=== PATIENT | male | born 2000 | race Caucasian/White ===

== ENCOUNTER 2022-12-02 10:20 | Outpatient (REF) | payer BC, SELFPAY ==
[2022-12-02 11:54] LABS: Hematocrit 44.5 % (42.0-52.0); Hemoglobin 14.1 g/dl (14.0-18.0); Mean Corpuscular HGB Conc 31.7 g/dl (31.0-36.0); Mean Corpuscular Hemoglobin 27.3 pg (27.0-33.0); Mean Corpuscular Volume 86.2 fL (80.0-98.0); Mean Platelet Volume 9.5 fL (9.4-12.4); Platelet Count 316 X10*3/uL (160-400); Red Blood Count 5.16 X10*6/uL (4.60-5.80); Red Cell Distribution Width 19.5 % (11.0-16.0); White Blood Count 7.2 X10*3/uL (4.8-10.8)
[2022-12-02 13:31] LABS: Alanine Aminotransferase 44 U/L (0-40); Albumin Level 4.3 g/dL (3.5-5.0); Alkaline Phosphatase 97 U/L (39-117); Anion Gap 13 (12-20); Aspartate Amino Transferase 20 U/L (5-37); Bilirubin Total 0.6 mg/dL (0.0-1.0); Blood Urea Nitrogen 10 mg/dL (9-16); C Reactive Protein 0.82 mg/dL (< or = 0.50); Calcium 9.5 mg/dL (8.4-10.2); Carbon Dioxide 23 mmol/L (22-29); Chloride 107 mmol/L (96-108); Estimated Glomerular Filt Rate > 60; Glucose Random 68 mg/dL (60-115); Iron 162 mcg/dL (45-160); Percent Iron Saturation 46 % (15-50); Potassium 3.8 mmol/L (3.3-5.1); Sodium 139 mmol/L (135-145); Total Iron Binding Capacity 349 mcg/dL (228-428); Total Protein 7.9 g/dL (6.5-8.0); Unsaturated Iron Binding 187 ug/dL
[2022-12-02 13:36] LABS: Ferritin 17 ng/mL (20-250); TSH reflex Free T4 1.43 uIU/mL (0.32-4.0); Vitamin D 25-OH Total 30.7 ng/mL (>30)
[2022-12-03 04:16] LABS: HBc Num1 0.12 S/CO (0.00-0.79); HBsAGNum1 0.39 S/CO (0.00-0.99); Hepatitis A Antibody IgG REACTIVE (Nonreactive); Hepatitis B Core Antibody Nonreactive (Nonreactive); Hepatitis B Surface Antigen Negative (Negative); ~HepC Num1 0.08 S/CO (0.00-0.79); ~Hepatitis A Antibody IgG 4.14 S/CO (0.00-0.99); ~Hepatitis B Surface Antibody REACTIVE (Nonreactive); ~Hepatitis C Antibody Nonreactive (Nonreactive)
[2022-12-03 05:43] LABS: HIV AB/AG Nonreactive (Nonreactive); HIV Num 2 0.95 S/CO; HIV Num 3 0.94 S/CO
[2022-12-04 21:48] LABS: TS Negative Control Passed; TS Panel A 0; TS Panel B 0; TS Positive Control Passed; TSpotTB Negative (Negative)
[2022-12-09 20:39] LABS: TPMT Activity 15
[2022-12-11 03:33] LABS: Adalimumab Drug Level 3.8 mcg/mL; Anti-Adalimumab Antibody 19 AU (<10)
== END 2022-12-02 10:21 | disposition home or self-care (01) ==
LOC: HO.LAB 10:20
PROVIDERS: Visit Provider Internal Medicine
DX: K51.90 Ulcerative colitis, unspecified, without complications (principal); K83.01 Primary sclerosing cholangitis
CPT/HCPCS: 36415; 80053; 80145; 82306; 82728; 83520; 83540; 84433; 84443; 85027; 86140; 86481; 86704; 86706; 86708; 86787; 86803; 87340; 87389

== ENCOUNTER 2022-12-02 10:20 | Outpatient (AMB) | payer BC, SELFPAY ==
--- NOTE | 2022-12-02 10:23 | A.OFFVIS_ITS ---
Intake Vital Signs 12/02/22 10:24 Height 5 ft 10 in Weight 178 lb 9.191 oz BMI 25.6 BP 123/65 Blood Pressure Location Lt brachial Position Sitting Pulse 62 Intake Visit Reasons: Crohn's Intake Note: Joel presents in the office as a new patient for Crohn's. CC: He states that he has Ulcerative Colitis. He gets pains in the stomach, constipation and diarrhea. No blood when he has a bowel movement. Allergies No Known Allergies Allergy (Verified 12/02/22 10:26) HPI HPI Comments History of Present Illness Details 22 y.o with recently diagnosed ulcerativ e colitis with PSC this year who is here to establish care. Pt lives in [facility] but goes to [facility] so looking for care closer to this. Records from PCP or GI not available at the time of this visit. Had watery diarrhea 4-5/day with occasional black stools x 1 year with lower abd ominal pain and cramping. Also had bilateral knee and elbow pains. No changes in appetite or weight. Initially attributed his sx to a resolving GI illness and then later on diet triggers. Had urgency and tenesmus. No night time sx. Eventually underwent evaluation through [facility] GI (Dr Aaron Mckeon) including EGD/colo which established the diagnosis in July of this year. Thinks UC was involving the whole colon but unsure. Records not available. Was initiated on Humira 09/30/22, now on 40mg S/C q2w. Last dose was 11/25. However despite being on this for almost a month did not feel much different clinically so was started on budesonide 9mg PO. [place] the dose was too high didn't think it was helping much so decreased it to 3mg BID (6mg/day). Has been on this for almost 2 weeks now. Pt also reports being diagnosed with PSC on the basis on lab work, US followed by an MRI. No biopsy yet. Currently, continues to have abd cramping and diarrhea with urgency. Starting to notice that are turning black again. Also reports worsening pain in R knee with this. [facility] Medical History Hx of branchial cleft cyst Surgical History History of esophagogastroduodenoscopy (EGD) Hx of colonoscopy Hx of appendectomy Social History (Updated 12/02/22 @ 10:26 by HENNY Chung) Household Members: Family Alcohol intake: current Alcohol intake frequency: a few times a week Patient Tobacco Use Status: Never used Tobacco Substance Use Type: Marijuana Review of Systems Const All systems reviewed & are unremarkable except as noted in HPI and below Physical Exam Vital Signs: Last Vital Signs Pulse 62 12/02/22 10:24 BP 123/65 12/02/22 10:24 BMI result Body Mass Index 25.6 Gen appear: NAD HEENT: nonicteric, no cervical lymphadenopathy Chest: CTA CVS: Regular S1/S2 Abd: soft, nontender, nondistended, bowel sounds + Ext: no peripheral edema Neuro: A/Ox3, noted to move all extremities spontaneously Psych: interacting appropriately Assessment & Plan Assessment & Plan (1) Ulcerative colitis: Code(s): K51.90 - Ulcerative colitis, unspecified, without complications (2) Primary sclerosing cholangitis: Code(s): K83.01 - Primary sclerosing cholangitis Plan Ulcerative colitis with PSC Will need records from GI and PCP for accurate assessment of disease extent and severity. These have been requested. We will also get labs to determine response to therapy. Based on clinical assessment, may need escalation in therapy. Briefly reviewed options outside of anti-TNF including small molecule, anti-integrin and anti-IL therapies. However this will be reviewed in detail based on results of work up as below. - Disease and therapy: Active based on clinical presentation. - Check CRP, Fecal calpro. - Check adalimumab levels and Ab - Check CBC, LFTs, renal function. - Cont budesonide for now, however if inflammatory markers significantly up, will switch to systemic pred. Further steroid sparing therapy will be based on ADA drug and Ab level to determine i) dose increase vs ii) in class switch vs iii) out of class switch - Nutrition: Check iron, B12 and folate - Immunization: Reminded to stay up to date on all vaccines and to AVOID LIVE VACCINES. - Bone Health: On Vit D supplements currently. - Cancer prevention: IBD dysplasia: colonoscopy due in 2023 given concurrent PSC. Sun safety discussed. - Associated disease: PSC as per his report. Records awaited. - LFTs ordered. - Will need yearly i) colonoscopy ii) MRI/MRCP and CA 19-9 for screening of CRC, CCa and GBCa. Depending on overall clinical course, this can be spaced out over the next 3-5 years. - Next imaging will be due 08/2023. - If significant cholestasis will also check dexa. Close follow up in 4 weeks. ? Orders: Orders Complete Blood Count no Diff Today - Ulcerative colitis, unspecified, without complications Comprehensive Met. Panel Today - Ulcerative colitis, unspecified, without complications Ferritin Today - Ulcerative colitis, unspecified, without complications IRON PROFILE Today - Ulcerative colitis, unspecified, without complications Thiopurine Methyltransferase Today - Ulcerative colitis, unspecified, without complications Hepatitis A IgG Today - Ulcerative colitis, unspecified, without complications Calprotectin, Fecal Today - Ulcerative colitis, unspecified, without complications CDiff Gene PCR Today - Ulcerative colitis, unspecified, without complications Vitamin D 25-OH Total Today - Ulcerative colitis, unspecified, without complications TSH reflex Free T4 Today - Ulcerative colitis, unspecified, without complications Hepatitis B Core Antibody Today - Ulcerative colitis, unspecified, without complications Hepatitis B Surface Antibody Today - Ulcerative colitis, unspecified, without complications Hepatitis B Surface Antigen Today - Ulcerative colitis, unspecified, without complications Hepatitis C Antibody Today - Ulcerative colitis, unspecified, without complications T Spot TB Today - Ulcerative colitis, unspecified, without complications HIV Ab/Ag Today - Ulcerative colitis, unspecified, without complications C Reactive Protein Today - Ulcerative colitis, unspecified, without co mplications Adalimumab+Ab Today - Ulcerative colitis, unspecified, without complications Varicella IgG Antibody Today - Ulcerative colitis, unspecified, without complications Coding Level of Care Code New Pt Level 5 (63205) Diagnoses Ulcerative colitis Primary sclerosing cholangitis K83.01
[2022-12-02 10:24] VITALS: BP 123/65; PULSE 62; BMI 25.6
== END 2022-12-02 11:06 | disposition home or self-care (01) ==
PROVIDERS: Visit Provider Internal Medicine
DX: K51.90 Ulcerative colitis, unspecified, without complications (principal); K83.01 Primary sclerosing cholangitis
CPT/HCPCS: 99204

== ENCOUNTER 2022-12-09 12:10 | Outpatient (REF) | payer BC, SELFPAY ==
[2022-12-09 13:12] LABS: CDiff Gene PCR NEGATIVE (Negative)
[2022-12-16 23:32] LABS: Calprotectin, Fecal 2880 mcg/g
== END 2022-12-09 12:11 | disposition home or self-care (01) ==
LOC: HO.LNP 12:10
PROVIDERS: Visit Provider Internal Medicine
DX: K51.90 Ulcerative colitis, unspecified, without complications (principal)
CPT/HCPCS: 83993; 87493

== ENCOUNTER 2022-12-25 12:38 | Outpatient (AMB) | payer BC, SELFPAY ==
--- NOTE | 2022-12-25 12:54 | MHC.OFFVIS ---
Intake Intake Visit Reasons: Follow Up Crohns Intake Note: Joel presents as a telehealth today for a follow up to his Crohns per Dr. Fink Allergies No Known Allergies Allergy (Verified 12/02/22 10:26) HPI HPI Comments History of Present Illness Details 22 y.o with recently diagnosed ulcerative colitis with PSC this year who is here for follow up 12/02/22: Pt lives in [facility] but goes to [facility] so looking for care closer to this. Records from PCP or GI not available at the time of this visit. Had watery diarrhea 4-5/day with occasional black stools x 1 year with lower abdominal pain and cramping. Also had bilateral knee and elbow pains. No changes in appetite or weight. Initially attributed his sx to a resolving GI illness and then later on diet triggers. Had urgency and tenesmus. No night time sx. Eventually underwent evaluation through [facility] GI (Dr Aaron Mckeon) including EGD/colo which established the diagnosis in July of this year. Thinks UC was involving the whole colon but unsure. Records not available. Was initiated on Humira 09/30/22, now on 40mg S/C q2w. Last dose was 11/25. However despite being on this for almost a month did not feel much different clinically so was started on budesonide 9mg PO. [place] the dose was too high didn't think it was helping much so decreased it to 3mg BID (6mg/day). Has been on this for almost 2 weeks now. Pt also reports being diagnosed with PSC on the basis on lab work, US followed by an MRI. No biopsy yet. Currently, continues to have abd cramping and diarrhea with urgency. Starting to notice that are turning black again. Also reports worsening pain in R knee with this. 12/25/22: Booked for a televisit today to review results. His sx are essentially unchanged from last visit. Cont on budesonide 3 BID. Records still pending from previous GI. Labs reviewed - has active disease based on fecal calpro >2000. Appears to be secondary to subtherapeutic humira levels due to Ab. PFSH Medical History Hx of branchial cleft cyst Surgical History History of esophagogastroduodenoscopy (EGD) Hx of colonoscopy Hx of appendectomy Social History (Updated 12/02/22 @ 10:26 by HENNY Chung) Household Members: Family Alcohol intake: current Alcohol intake frequency: a few times a week Patient Tobacco Use Status: Never used Tobacco Substance Use Type: Marijuana Review of Systems Const All systems reviewed & are unremarkable except as noted in HPI and below Physical Exam Vital Signs: televisit: Nontoxic appearing Able to speak in complete sentences no facial asymmetry Assessment & Plan Assessment & Plan (1) Ulcerative colitis: Code(s): K51.90 - Ulcerative colitis, unspecified, without complications (2) Primary sclerosing cholangitis: Code(s): K83.01 - Primary sclerosing cholangitis Plan Ulcerative colitis with PSC Records from GI and PCP for accurate assessment of disease extent and severity still pending. Request resent today. Based on clinical and biochemical assessment has active disease and needs to be switched in class due to Ab to Humira. Will favor infliximab infusions with proactive TDM. Therapy already approved by insurance. Biologic discussion: I have discussed the risks and benefits of starting anti-TNF therapy specifically infliximab with the patient, including the risk of NOT using this therapy (uncontrolled disease) and possible alternative therapies that may not be as effective. Risks reviewed included slight increased risk of malignancy and infection and possibility of infusion reactions/allergies or autoimmune-like conditions triggered by infusions. Reviewed the need for up to date vaccinations (and avoidance of live vaccines), and need for annual skin exams. In the meantime, will start systemic prednisone for induction. - Disease and therapy: Active - CRP: 0.8, fecal calpro 2880 - DC budesonide - Start prednisone 60mg PO x 2 week followed by a 10mg taper per week - Start infliximab 5mg/kg IV 0,2,6 followed by q8w - Check CRP, fecal calpro, infliximab drug and Ab levels BEFORE 1st maintenance dose - Records pending as above - Nutrition: Mildly low iron, B12 and folate normal - Immunization: Reminded to stay up to date on all vaccines and to AVOID LIVE VACCINES. - Bone Health: On Vit D supplements currently. Reminded to anderson take this while she is on pred - Cancer prevention: IBD dysplasia: colonoscopy due in 2023 given concurrent PSC. Sun safety discussed. - Associated disease: PSC as per his report. Records awaited. - ALP normal 12/02/22 - Will need yearly i) colonoscopy ii) MRI/MRCP and CA 19-9 for screening of CRC, CCa and GBCa. Depending on overall clinical course, this can be spaced out over the next 3-5 years. - Next imaging will be due 08/2023. - Check DEXA later this year. Follow up in 3 months ? Medications: New prednisone STOP budesonide and start prednisone 60mg once daily to be taken for 2 weeks followed by taper. 60 mg (3 x 20 mg) PO DAILY 2 weeks 42 tabs 0RF prednisone TAPER INSTRUCTIONS: 50mg x 1 week then 40mg x 1 week then 30mg x 1 week then 20mg x 1 week and then 10mg x 1 week orally as directed 105 tabs 0RF Telehealth Telehealth Location of provider rendering services: practice address Location of patient: address on file Patient Identification confirmed using: Name, : Yes Telehealth method: video Patient verbally consented to treatment: Yes Patient verbally consented to billing insurance company: Yes Patient informed of any privacy concerns related to visit: Yes Minutes spent on Phone/Video with Pt.: 17 Coding Level of Care Code Est Pt Level 5 (05260) Diagnoses Ulcerative colitis K51.90 Primary sclerosing cholangitis K83.01
== END 2022-12-25 13:35 | disposition home or self-care (01) ==
LOC: HO.HGI 12:39
PROVIDERS: Visit Provider Internal Medicine
DX: K51.90 Ulcerative colitis, unspecified, without complications (principal); K83.01 Primary sclerosing cholangitis
CPT/HCPCS: 99213

== ENCOUNTER → 2022-12-25 12:38 | Outpatient (BNVA) | payer BC, SELFPAY | PROVIDERS: Visit Provider Internal Medicine ==

== ENCOUNTER 2023-01-20 12:34 | Outpatient (REF) | payer BC, SELFPAY | END 2023-01-20 12:35 | disposition home or self-care (01) | LOC: HO.MDS 12:34 | PROVIDERS: Visit Provider Internal Medicine | DX: K51.90 Ulcerative colitis, unspecified, without complications (principal) | CPT/HCPCS: 96365; 96366; J1745 ==

== ENCOUNTER 2023-02-03 09:58 | Outpatient (REF) | payer BC, SELFPAY | END 2023-02-03 09:59 | disposition home or self-care (01) | LOC: HO.MDS 09:58 | PROVIDERS: Visit Provider Internal Medicine | DX: K51.90 Ulcerative colitis, unspecified, without complications (principal) | CPT/HCPCS: 96365; 96366; J1200; J1745 ==

== ENCOUNTER 2023-03-02 10:22 | Outpatient (REF) | payer BC, SELFPAY | END 2023-03-02 10:23 | disposition home or self-care (01) | LOC: HO.MDS 10:22 | PROVIDERS: Visit Provider Internal Medicine | DX: K51.90 Ulcerative colitis, unspecified, without complications (principal) | CPT/HCPCS: 96365; 96375; J1200; J1720; J1745 ==

== ENCOUNTER 2023-03-23 10:57 | Outpatient (AMB) | payer BC, SELFPAY ==
--- NOTE | 2023-03-23 11:00 | MHC.OFFVIS ---
Intake Vital Signs 03/23/23 11:02 Height 5 ft 10 in Weight 180 lb 12.465 oz BMI 25.9 BP 121/71 Blood Pressure Location Lt brachial Position Sitting Pulse 64 Intake Visit Reasons: f/u Intake Note: Joel presents in the office as a follow up. CC: Meds seem to be wearing off and he states that the symptoms are starting to come back. Allergies No Known Allergies Allergy (Verified 03/23/23 11:02) HPI HPI Comments History of Present Illness Details 22 y.o with recently diagnosed ulcerative colitis with PSC this year who is here for follow up 12/02/22: Pt lives in [facility] but goes to [facility] so looking for care closer to this. Records from PCP or GI not available at the time of this visit. Had watery diarrhea 4-5/day with occasional black stools x 1 year with lower abdominal pain and cramping. Also had bilateral knee and elbow pains. No changes in appetite or weight. Initially attributed his sx to a resolving GI illness and then later on diet triggers. Had urgency and tenesmus. No night time sx. Eventually underwent evaluation through [facility] GI (Dr Aaron Mckeon) including EGD/colo which established the diagnosis in July of this year. Thinks UC was involving the whole colon but unsure. Records not available. Was initiated on Humira 09/30/22, now on 40mg S/C q2w. Last dose was 11/25. However despite being on this for almost a month did not feel much different clinically so was started on budesonide 9mg PO. [place] the dose was too high didn't think it was helping much so decreased it to 3mg BID (6mg/day). Has been on this for almost 2 weeks now. Pt also reports being diagnosed with PSC on the basis on lab work, US followed by an MRI. No biopsy yet. Currently, continues to have abd cramping and diarrhea with urgency. Starting to notice that are turning black again. Also reports worsening pain in R knee with this. 12/25/22: Booked for a televisit today to review results. His sx are essentially unchanged from last visit. Cont on budesonide 3 BID. Records still pending from previous GI. Labs reviewed - has active disease based on fecal calpro >2000. Appears to be secondary to subtherapeutic humira levels due to Ab. 03/23/23: Here for follow up. Had remicade infusion reaction to 2nd and 3rd dose. The 3rd dose was on 03/02/23 and could not be completed due to significant breathing difficulty reported by the pt despite premedication with hydrocort and benadryl, could only take 10 mins of infusion before it had to be stopped. Had been taking prednisone and reports course has been completed. 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 PFSH Medical History Hx of branchial cleft cyst Surgical History History of esophagogastroduodenoscopy (EGD) Hx of colonoscopy Hx of appendectomy Social History Household Members: Family Alcohol intake: current Alcohol intake frequency: a few times a week Patient Tobacco Use Status: Never used Tobacco Substance Use Type: Marijuana Review of Systems Const All systems reviewed & are unremarkable except as noted in HPI and below Physical Exam Vital Signs: Last Vital Signs Pulse 64 03/23/23 11:02 BP 121/71 03/23/23 11:02 BMI result Body Mass Index 25.9 Const General: cooperative and no acute distress Orientation/consciousness: patient oriented x3 HEENT Head: Yes normocephalic and Yes other (No scleral icterus ) Resp Effort & Inspection: normal respiratory effort and able to speak in complete sentences Auscultation: clear to auscultation bilaterally Cardio Rate: regular rate Rhythm: regular rhythm GI Palpation (GI): Soft to palpation and No hepatosplenomegaly present Percussion: Yes normal to percussion Auscultation: normal bowel sounds Rectal Exam - Male: Yes deferred Skin General skin exam: no rashes or lesions noted and turgor normal Neuro General: patient oriented x3, gait normal and moves all extremities Extrem General: Yes full ROM and Yes no pedal edema Psych Appearance: well kempt Mental Status: mental status grossly normal Affect: normal affect Assessment & Plan Assessment & Plan (1) Ulcerative colitis: Code(s): K51.90 - Ulcerative colitis, unspecified, without complications (2) Primary sclerosing cholangitis: Code(s): K83.01 - Primary sclerosing cholangitis Plan Ulcerative colitis with PSC Records from GI and PCP for accurate assessment of disease extent and severity still pending. Patient requested to obtain his own medical record separately and mail us the records. Patient intolerant to Remicade due to severe infusion reaction. Will switch out of class. Discussed options for therapy for moderate to severe ulcerative colitis and would prefer Stelara or Rinvoq. Discussed administration, response and remission rates for both. Patient would like to start Rinvoq as it is NPO form and he can take it at home. Significant side effects to watch out for were thoroughly discussed including cardiovascular risk, risk of thrombosis, risk of malignancy including skin, and infections. It has already been approved by his insurance, and will send him the induction dose to be taken for 8 weeks. He is aware of lab monitoring needed on this medication. - Disease and therapy: Active - CRP: 0.8, fecal calpro 2880 - DC infliximab - Start Rinvoq 45 mg PO x 8 weeks followed by maintenance dosing - check baseline CBC and LFTs. These are to be repeated every 4 weeks during induction phase and then every 12 weeks on maintenance. - he will also need a lipid profile at 12 w - Check CRP, fecal calpro at 8 weeks to decide 15 mg versus 30 mg dosing for maintenance - Records pending as above - Nutrition: Mildly low iron, B12 and folate normal - Immunization: Reminded to stay up to date on all vaccines and to AVOID LIVE VACCINES. - Bone Health: On Vit D supplements currently. - Cancer prevention: IBD dysplasia: colonoscopy due in 2023 given concurrent PSC. Sun safety discussed. - Associated disease: PSC as per his report. Records awaited. - ALP normal 12/02/22 - Will need yearly i) colonoscopy ii) MRI/MRCP and CA 19-9 for screening of CRC, CCa and GBCa. Depending on overall clinical course, this can be spaced out over the next 3-5 years. - Next imaging will be due 08/2023. - Check DEXA later this year. Follow up in 8 weeks UPDATE: pt later called to request taper for prednisone which has been Rxed. ? Orders: Orders Complete Blood Count no Diff 03/23/23 K51.90 - Ulcerative colitis, unspecified, without complications Comprehensive Met. Panel 03/23/23 K51.90 - Ulcerative colitis, unspecified, without complications Medications: New prednisone Take 3 tabs for 7 days, then 2 tabs for 7 days and then 1 tab for 7 days to complete taper. 42 tabs 0RF Coding Level of Care Code Est Pt Level 5 (75100) Diagnoses Ulcerative colitis K51.90 Primary sclerosing cholangitis K83.01
[2023-03-23 11:02] VITALS: BP 121/71; PULSE 64; BMI 25.9
== END 2023-03-23 11:45 | disposition home or self-care (01) ==
PROVIDERS: Visit Provider Internal Medicine
DX: K51.90 Ulcerative colitis, unspecified, without complications (principal); K83.01 Primary sclerosing cholangitis
CPT/HCPCS: 99214

== ENCOUNTER 2023-03-23 10:57 | Outpatient (REF) | payer BC, SELFPAY ==
[2023-03-23 12:51] LABS: Hematocrit 44.4 % (42.0-52.0); Hemoglobin 14.6 g/dl (14.0-18.0); Mean Corpuscular HGB Conc 32.9 g/dl (31.0-36.0); Mean Corpuscular Hemoglobin 29.8 pg (27.0-33.0); Mean Corpuscular Volume 90.6 fL (80.0-98.0); Mean Platelet Volume 9.5 fL (9.4-12.4); Platelet Count 343 X10*3/uL (160-400); Red Cell Distribution Width 13.7 % (11.0-16.0); White Blood Count 11.2 X10*3/uL (4.8-10.8)
[2023-03-23 13:19] LABS: Alanine Aminotransferase 172 U/L (0-40); Albumin Level 4.2 g/dL (3.5-5.0); Alkaline Phosphatase 82 U/L (39-117); Anion Gap 11 (12-20); Aspartate Amino Transferase 143 U/L (5-37); Bilirubin Total 0.6 mg/dL (0.0-1.0); Blood Urea Nitrogen 14 mg/dL (9-16); Calcium 9.4 mg/dL (8.4-10.2); Carbon Dioxide 27 mmol/L (22-29); Chloride 105 mmol/L (96-108); Estimated Glomerular Filt Rate > 60; Glucose Random 84 mg/dL (60-115); Sodium 139 mmol/L (135-145); Total Protein 7.6 g/dL (6.5-8.0)
== END 2023-03-23 10:58 | disposition home or self-care (01) ==
LOC: HO.LAB 10:57
PROVIDERS: Visit Provider Internal Medicine
DX: K51.90 Ulcerative colitis, unspecified, without complications (principal); K83.01 Primary sclerosing cholangitis
CPT/HCPCS: 36415; 80053; 85027

== ENCOUNTER 2023-05-19 15:01 | Outpatient (REF) | payer BC, SELFPAY ==
[2023-05-19 15:40] LABS: Hematocrit 42.2 % (42.0-52.0); Hemoglobin 14.6 g/dl (14.0-18.0); Mean Corpuscular HGB Conc 34.6 g/dl (31.0-36.0); Mean Corpuscular Hemoglobin 30.7 pg (27.0-33.0); Mean Corpuscular Volume 88.8 fL (80.0-98.0); Mean Platelet Volume 9.1 fL (9.4-12.4); Platelet Count 360 X10*3/uL (160-400); Red Blood Count 4.75 X10*6/uL (4.60-5.80); Red Cell Distribution Width 12.8 % (11.0-16.0); White Blood Count 6.7 X10*3/uL (4.8-10.8)
[2023-05-19 16:01] LABS: Alanine Aminotransferase 27 U/L (0-40); Albumin Level 4.5 g/dL (3.5-5.0); Alkaline Phosphatase 65 U/L (39-117); Aspartate Amino Transferase 24 U/L (5-37); Bilirubin Direct 0.3 mg/dL (0.0-0.5); Bilirubin Total 0.8 mg/dL (0.0-1.0); C Reactive Protein < 0.04 mg/dL (< or = 0.50); Total Protein 7.6 g/dL (6.5-8.0)
== END 2023-05-19 15:02 | disposition home or self-care (01) ==
LOC: HO.LAB 15:01
PROVIDERS: Visit Provider Internal Medicine
DX: K51.90 Ulcerative colitis, unspecified, without complications (principal)
CPT/HCPCS: 36415; 80076; 85027; 86140

== ENCOUNTER 2023-05-21 13:51 | Outpatient (REF) | payer BC, SELFPAY ==
[2023-05-27 20:38] LABS: Calprotectin, Fecal 74 mcg/g
== END 2023-05-21 13:52 | disposition home or self-care (01) ==
LOC: HO.LNP 13:51
PROVIDERS: Visit Provider Internal Medicine
DX: K51.90 Ulcerative colitis, unspecified, without complications (principal); K83.01 Primary sclerosing cholangitis; B36.0 Pityriasis versicolor
CPT/HCPCS: 83993

== ENCOUNTER 2023-05-21 13:51 | Outpatient (AMB) | payer BC, SELFPAY ==
--- NOTE | 2023-05-21 14:16 | MHC.OFFVIS ---
Intake Vital Signs 05/21/23 14:17 Weight 180 lb 5.41 oz BP 125/72 Blood Pressure Location Lt brachial Position Sitting Pulse 91 Intake Visit Reasons: 2 month follow up sclerosing cholangitis Intake Note: Patient here for 2m f/u ulcerative cholitis. Reports doing well since taking short course of prednisone. 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 Records from PCP or GI not available at the time of this visit. Had watery diarrhea 4-5/day with occasional black stools x 1 year with lower abdominal pain and cramping. Also had bilateral knee and elbow pains. No changes in appetite or weight. Initially attributed his sx to a resolving GI illness and then later on diet triggers. Had urgency and tenesmus. No night time sx. Eventually underwent evaluation through [facility] (Dr Aaron Mckeon) including EGD/colo which established the diagnosis in July of this year. Thinks UC was involving the whole colon but unsure. Records not available. Was initiated on Humira 09/30/22, now on 40mg S/C q2w. Last dose was 11/25. However despite being on this for almost a month did not feel much different clinically so was started on budesonide 9mg PO. [place] the dose was too high didn't think it was helping much so decreased it to 3mg BID (6mg/day). Has been on this for almost 2 weeks now. Pt also reports being diagnosed with PSC on the basis on lab work, US followed by an MRI. No biopsy yet. Currently, continues to have abd cramping and diarrhea with urgency. Starting to notice that are turning black again. Also reports worsening pain in R knee with this. 12/25/22: Booked for a televisit today to review results. His sx are essentially unchanged from last visit. Cont on budesonide 3 BID. Records still pending from previous GI. Labs reviewed - has active disease based on fecal calpro >2000. Appears to be secondary to subtherapeutic humira levels due to Ab. 03/23/23: Here for follow up. Had remicade infusion reaction to 2nd and 3rd dose. The 3rd dose was on 03/02/23 and could not be completed due to significant breathing difficulty reported by the pt despite premedication with hydrocort and benadryl, could only take 10 mins of infusion before it had to be stopped. Had been taking prednisone and reports course has been completed. 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 05/21/23: Pt here for follow up. Started Rinvoq on Apr 14 at 45mg induction - to be completed around June 08 followed by 15mg dosing. With this, notes resolution in abd cramping and diarrhea has improved wtih formed BMs without any blood. No urgency. Color is now brown. Stopped taking iron, but is taking Vit D. Records from prev GI reviewed. Prev EGD/colo summer 2022. MRI suggestive of PSC. Reports some hypopigmentation spots on his trunk more on back than chest. [facility] Medical History Hx of branchial cleft cyst Surgical History History of esophagogastroduodenoscopy (EGD) Hx of colonoscopy Hx of appendectomy Social History Household Members: Family Alcohol intake: current Alcohol intake frequency: a few times a week Patient Tobacco Use Status: Never used Tobacco Substance Use Type: Marijuana Review of Systems Const All systems reviewed & are unremarkable except as noted in HPI and below Physical Exam Vital Signs: Last Vital Signs Pulse 91 05/21/23 14:17 BP 125/72 05/21/23 14:17 NAD Nonicteric Abd soft, nontender Hypopigmented macules measuring 2-5mm on back and some on R shoulder and chest. Assessment & Plan Assessment & Plan (1) Ulcerative colitis: Code(s): K51.90 - Ulcerative colitis, unspecified, without complications (2) Primary sclerosing cholangitis: Code(s): K83.01 - Primary sclerosing cholangitis (3) Pityriasis versicolor: Code(s): B36.0 - Pityriasis versicolor Plan Ulcerative colitis with PSC Patient intolerant to Remicade due to severe infusion reaction. Will switch out of class. Discussed options for therapy for moderate to severe ulcerative colitis and would prefer Stelara or Rinvoq. Discussed administration, response and remission rates for both. Patient would like to start Rinvoq as it is in PO form and he can take it at home. Significant side effects to watch out for were thoroughly discussed including cardiovascular risk, risk of thrombosis, risk of malignancy including skin, and infections. It has already been approved by his insurance, and will send him the induction dose to be taken for 8 weeks. He is aware of lab monitoring needed on this medication. Doing well on Rinvoq - appears to be in clinical remission. CRP also undetectable now. Stool calpro pending. Due for colo anderson if has PSC. Although LFTs have normalised, will check another MRI and CA-19-9 - Disease and therapy: Clinical response to Rinvoq - currently on induction dose till 06/08. - CRP: undetectable, fecal calpro pending, prev 2880 - Cont Rinvoq 45 mg PO x 8 weeks followed by maintenance 15mg dosing - Repeat CBC and LFTs in 4 weeks - Check lipids at that time - Fecal calpro pending - if <50% improvement, will increase maintenance dose to 30, if >50% improvement will cont 15mg maintenance dose. - Nutrition: Mildly low iron, B12 and folate normal. Resume PO iron. Pt declines IV iron at this time. - Immunization: Reminded to stay up to date on all vaccines and to AVOID LIVE VACCINES. - Bone Health: On Vit D supplements currently. - Cancer prevention: IBD dysplasia: colonoscopy due given concurrent PSC. To be scheduled. Split PEG prep istructions given. Sun safety discussed. - Associated disease: PSC as per prev records. - ALP normal - Will repeat MRI/MRCP as well as check CA 19-9 for CCa and GBCa screening. - If PSC confirmed, will need yearly i) colonoscopy ii) MRI/MRCP and CA 19-9 for screening of CRC, CCa and GBCa. Depending on overall clinical course, this can be spaced out over the next 3-5 years. - Check DEXA later this year. Tinea versicolor: Exam consistent with above. Pt reassured that likely benign fungal infection but to see Derm for eval and mgmt. Follow up in 4 months ? Orders: Orders Complete Blood Count no Diff Today K51. - Ulcerative colitis, unspecified, without complications Liver Panel Today K51.90 - Ulcerative colitis, unspecified, without complications Ferritin Today K51.90 - Ulcerative colitis, unspecified, without complications IRON PROFILE Today K51. - Ulcerative colitis, unspecified, without complications Lipid Panel Today K51. - Ulcerative colitis, unspecified, without complications Smooth Muscle Antibody Today K51. - Ulcerative colitis, unspecified, without complications Mitochondrial Antibody Today K51. - Ulcerative colitis, unspecified, without complications Liver Kidney Microsomal Ab Today K51. - Ulcerative colitis, unspecified, without complications Vitamin E Today K83. - Primary sclerosing cholangitis Vitamin K1 Today K83.01 - Primary sclerosing cholangitis MR abdomen wo/w con Today K83. - Primary sclerosing cholangitis Vitamin D 25-OH Total Today K5. - Ulcerative colitis, unspecified, without complications Carbohydrate Antigen 19-9 Today K83.01 - Primary sclerosing cholangitis Vitamin A Today K83.01 - Primary sclerosing cholangitis Medications: New peg 3350-electrolytes 236-22.74-6.74 -5.86 gram (Golytely) as per split prep instructions, until fecal effluent is clear 240 mL PO Q10M 4,000 mL 0RF colonoscopy bisacodyl 10 mg (2 x 5 mg) PO ONCE 2 tabs 0RF simethicone (Gas Relief (simethicone)) 250 mg (2 x 125 mg) PO ONCE PRN 4 tabs 0RF abdominal distention Discontinued prednisone Discontinued Reason: Doctor's Order 40 mg (2 x 20 mg) PO DAILY 14 tabs 0RF prednisone Discontinued Reason: Doctor's Order Take 3 tabs for 7 days, then 2 tabs for 7 days and then 1 tab for 7 days to complete taper. 42 tabs 0RF Coding Level of Care Code Est Pt Level 5 (53331) Diagnoses Ulcerative colitis K5.90 Primary sclerosing cholangitis K83.01 Pityriasis versicolor B36.0
[2023-05-21 14:17] VITALS: BP 125/72; PULSE 91
== END 2023-05-21 14:46 | disposition home or self-care (01) ==
PROVIDERS: Visit Provider Internal Medicine
DX: K83.01 Primary sclerosing cholangitis (principal); K51.90 Ulcerative colitis, unspecified, without complications; B36.0 Pityriasis versicolor
CPT/HCPCS: 99214

== ENCOUNTER 2023-06-28 11:08 | Outpatient (REF) | payer BC, SELFPAY ==
--- NOTE | ~2023-06-28 | MR_ITS ---
EXAMINATION: MR ABDOMEN WITHOUT AND WITH CONTRAST CLINICAL INFORMATION: Primary sclerosing cholangitis COMPARISON: None TECHNIQUE: MRI of the abdomen before and after the IV administration of 8.5 mL of Gadavist was obtained using routine sequences. FINDINGS: LUNG BASES: The visualized lung bases are unremarkable. KIDNEYS AND URETERS: Unremarkable. GALLBLADDER: Unremarkable. LIVER AND BILIARY TREE: Liver is enlarged measuring 21.3 cm in span. There is trace central intrahepatic biliary duct dilatation and mild intrahepatic biliary duct dilatation in segment 2 with some mild irregularity of the intrahepatic bile ducts. There is a 1.2 cm span of focal narrowing of the common hepatic duct just proximal to the bifurcation of the right and left hepatic ducts which may reflect an underlying stricture. PANCREAS: Unremarkable SPLEEN: Unremarkable ADRENAL GLANDS: Unremarkable GASTROINTESTINAL TRACT: Unremarkable. LYMPH NODES: No lymphadenopathy. VASCULAR: Unremarkable ABDOMINAL WALL: Unremarkable. OSSEOUS STRUCTURES: Unremarkable. MR/MR abdomen wo/w con IMPRESSION: 1. There is trace central intrahepatic biliary duct dilatation and mild intrahepatic biliary duct dilatation in segment 2 with some mild irregularity of the intrahepatic bile ducts. There is a 1.2 cm span of focal narrowing of the common hepatic duct just proximal to the bifurcation of the right and left hepatic ducts which may reflect an underlying stricture. Constellation of findings can be seen in the setting of reported primary sclerosing cholangitis. 2. Liver is enlarged measuring 21.3 cm in span.
[2023-06-28] MEDS: gadobutroL 10 ML VIAL IVPUSH (12:22)
[2023-06-28 12:57] LABS: Hematocrit 42.2 % (42.0-52.0); Hemoglobin 14.5 g/dl (14.0-18.0); Mean Corpuscular HGB Conc 34.4 g/dl (31.0-36.0); Mean Corpuscular Hemoglobin 30.6 pg (27.0-33.0); Mean Platelet Volume 9.2 fL (9.4-12.4); Platelet Count 335 X10*3/uL (160-400); Red Blood Count 4.74 X10*6/uL (4.60-5.80); White Blood Count 5.6 X10*3/uL (4.8-10.8)
[2023-06-28 13:15] LABS: Alanine Aminotransferase 27 U/L (0-40); Albumin Level 4.7 g/dL (3.5-5.0); Alkaline Phosphatase 57 U/L (39-117); Aspartate Amino Transferase 23 U/L (5-37); Bilirubin Direct 0.3 mg/dL (0.0-0.5); Bilirubin Total 0.8 mg/dL (0.0-1.0); Cholesterol 145 mg/dL (<200); HDL Cholesterol 52 mg/dL (>40); Iron 133 mcg/dL (45-160); LDL Cholesterol Calculated 81 mg/dL (<100); Percent Iron Saturation 36 % (15-50); Total Iron Binding Capacity 368 mcg/dL (228-428); Triglycerides 63 mg/dL (<150); Unsaturated Iron Binding 235 ug/dL
[2023-06-28 13:30] LABS: Ferritin 57 ng/mL (20-250); Vitamin D 25-OH Total 33.9 ng/mL (>30)
[2023-06-29 08:48] LABS: Carbohydrate Antigen 19-9 32 U/mL (<34)
[2023-07-01 10:58] LABS: Mitochondrial Antibodies NEGATIVE (NEGATIVE)
[2023-07-01 14:55] LABS: Liver Kidney Microsomal Ab <=20.0 U (<=20.0)
[2023-07-01 21:28] LABS: Vitamin K1 474 pg/mL (130-1500)
[2023-07-02 12:33] LABS: Smooth Muscle Antibody <20 U (<20)
[2023-07-02 18:29] LABS: Vitamin A 54 mcg/dL (38-98)
[2023-07-02 19:28] LABS: Alpha-Tocopherol 7.7 mg/L (5.7-19.9); Beta-Gamma Tocopherol <1.0 mg/L (<=4.3)
== END 2023-06-28 11:09 | disposition home or self-care (01) ==
LOC: HO.MRI 11:08
PROVIDERS: Visit Provider Internal Medicine
DX: Z13.6 Encounter for screening for cardiovascular disorders (principal); K51.90 Ulcerative colitis, unspecified, without complications; K83.01 Primary sclerosing cholangitis
CPT/HCPCS: 36415; 74183; 80061; 80076; 82306; 82728; 83540; 84446; 84590; 84597; 85027; 86015; 86301; 86376; 86381; A9585

== ENCOUNTER 2023-07-09 15:05 | Outpatient (REF) | payer BC, SELFPAY ==
[2023-07-09 16:22] LABS: CDiff Gene PCR NEGATIVE (Negative)
[2023-07-10 10:41] LABS: Adenovirus F 40/41 Not Detected (Not Detect.); Astrovirus Not Detected (Not Detect.); Campylobacter Detected (Not Detect.); Cryptosporidium Not Detected (Not Detect.); Cyclospora cayetanensis Not Detected (Not Detect.); E. coli EAEC Not Detected (Not Detect.); E. coli EPEC Not Detected (Not Detect.); E. coli ETEC Not Detected (Not Detect.); E. coli STEC Not Detected (Not Detect.); Entamoeba histolytica Not Detected (Not Detect.); Giardia lamblia Not Detected (Not Detect.); Norovirus GI/GII Not Detected (Not Detect.); Plesiomonas shigelloides Not Detected (Not Detect.); Rotavirus A Not Detected (Not Detect.); Salmonella Not Detected (Not Detect.); Sapovirus Not Detected (Not Detect.); Shigella sp./EIEC Not Detected (Not Detect.); Vibrio Not Detected (Not Detect.); Vibrio Cholerae Not Detected (Not Detect.); Yersinia enterocolitica Not Detected (Not Detect.)
[2023-07-16 02:18] LABS: Calprotectin, Fecal 403 mcg/g
== END 2023-07-09 15:06 | disposition home or self-care (01) ==
LOC: HO.LNP 15:05
PROVIDERS: Visit Provider Internal Medicine
DX: K51.90 Ulcerative colitis, unspecified, without complications (principal); R19.7 Diarrhea, unspecified
CPT/HCPCS: 83993; 87493; 87507

== ENCOUNTER 2023-10-14 08:36 | Day surgery (SDC) | payer BC, SELFPAY ==
[2023-10-14 09:30] VITALS: BMI 24.8
[2023-10-14 09:53] VITALS: BP 133/88; PULSE 70; RESP 14; TEMP 36.4; O2SAT 96
--- NOTE | 2023-10-14 09:58 | HO.ANESPROP2 ---
HPI - Anesthesia Eval Consult details Narrative: for colon screen [facility] Active Problems Active Problems: All Active Problems (Updated 10/14/23 @ 09:23 by Iarm Osborne RN) Diarrhea (Acute) Pityriasis versicolor (Acute) Primary sclerosing cholangitis (Acute) Ulcerative colitis (Acute) Past Medical History Medical History Appendicitis Ulcerative colitis Hx of branchial cleft cyst Family History Family history of problems with anesthesia: No Surgical History Surgical History History of esophagogastroduodenoscopy (EGD) Hx of colonoscopy Hx of appendectomy History of Problems with Anesthesia: No Social History Social History Household Members: Family Are you a primary home visit field care manager to a significant other at home: No Do you presently have visiting nurse or other home services: No Alcohol intake: current Alcohol intake frequency: a few times a week Patient Tobacco Use Status: Never used Tobacco Use of substances other than those prescribed or required for medical reasons: Yes Substance Use Type: Marijuana Substance Use Frequency: Occasionally Have you been hit, kicked, punched, or otherwise hurt by someone within the past year? If so, by whom?: No Are you DNR?: No Advance Directives: No Advance Directives Information Provided: Yes Recently lost weight without trying: No Meds Allergies Allergy/AdvReac Type Severity Reaction Status Date / Time infliximab [From Remicade] Allergy Shortness Verified 10/14/23 09:26 of Breath Active Medications: Current Medications Lactated Ringer's (Lr) 1,000 mls @ 100 mls/hr IVCONT .Q10H [facility] Home Medications ?Medication ?Instructions ?Recorded ?Confirmed ?Last Taken ?Type methylphenidate HCl 10 mg biphasic 10 mg PO DAILY 12/02/22 10/14/23 10/11/23 History 30-70 capsule,extended release cholecalciferol (vitamin D3) 10 10 mcg PO DAILY 03/23/23 10/14/23 10/11/23 History mcg (400 unit) capsule upadacitinib 15 mg tablet,extended 30 mg PO DAILY 10/14/23 10/14/23 10/13/23 History release 24 hr (Rinvoq) Exam Height,Weight and Vital Signs: Height 5 ft 10 in Weight 78.471 kg Last Vital Signs Temp 97.6 F 10/14/23 09:53 Pulse 70 10/14/23 09:53 Resp 14 10/14/23 09:53 BP 133/88 10/14/23 09:53 Pulse Ox 96 10/14/23 09:53 O2 Del Method Room Air 10/14/23 09:53 Airway Mallampati Class: II TM Dist: >3cm Neck ROM: Full Heart: rrr Lungs: cta Assessment and Plan Assessment Anesthesia Assessment: Anesthesia Plan Discussed Final Anesthetic Review Family History of Problems with Anesthesia: No History of Problems with Anesthesia: No NPO: Yes ASA Class: III Final Preanesthetic Review: No Changes in Pt Med Stat, Meds/Allgs Chart Reviewed, Consent Obtained/Reviewed and Anes Risks/Benef Reviewed Patient Risk: Intermediate Procedure Risk: Low Anesthetic Plan Anesthetic Plan: MAC: Disposition: Standard PACU
[2023-10-14] MEDS: Lactated Ringers 1,000 ML 100 ML IVCONT (10:03)
--- NOTE | 2023-10-14 10:06 | MHC.SHP ---
Pre-Procedural Eval Section A - 24 Hr Update-Section A only Date of Service: 10/14/23 Section B - Complete if H&P > 30 days Chief Complaint: Ulcerative colitis, unspecified, without complicat Details of Present Illness: Hx of branchial cleft cyst Surgical History History of esophagogastroduodenoscopy (EGD) Hx of colonoscopy Hx of appendectomy Allergies: Allergies Allergy/AdvReac Type Severity Reaction Status Date / Time infliximab [From Remicade] Allergy Shortness Verified 10/14/23 09:26 of Breath Review of Systems Review of Systems Comment: Ten point ROS negative Exam Exam Comment: Gen appear: No acute distress HEENT: no icterus Chest: No overt resp distress Abd: soft, nontender, nondistended Psych: Stable affect, answering questions appropriately Neuro: A/Ox3 noted to move all extremities spontaneously Ext: no peripheral edema Plan Diagnosis/Plan: Unchanged I have reviewed the history and physical and performed a pertinent physical examination on my patient. No changes have occurred unless specified. Time Spent With Patient Time: Total time managing care of this patient today ____ minutes.
[2023-10-14 10:07] VITALS: BP 133/88; PULSE 70; RESP 14; TEMP 36.4; O2SAT 96
--- NOTE | 2023-10-14 10:30 | P.OPN-COLO_ITS ---
Colonoscopy Operative Note Operative Note Date of Service: 10/14/23 Narrative: Procedure: Colonoscopy Indication: Ulcerative colitis Endoscopist: Re Fink MD Anesthesia Provider: Jerri Booth CRNA Anesthesia type: MAC Instrument: Olympus [id number]-[id number] Consent: Indication, risks vs benefits, and alternatives were discussed with the patient who gave written informed consent to proceed. EKG, pulse, pulse oximetry and blood pressure were monitored throughout the procedure. Please see anesthesia flowsheet. Procedure: The patient was brought to the procedure room and placed in the left lateral decubitus position. IV medications were administered by the anesthesia provider in attendance. A digital rectal exam was performed which was normal. A distal attachment cap was affixed to the tip of the colonoscope which was then inserted through the anus and advanced through the colon to the cecum at 80 cm,and terminal ileum. Appendiceal orifice and ileocecal valve were identified. Mucosa was carefully examined under high definition white light as the instrument was slowly withdrawn in a retrograde panoramic fashion. Retroflexion was performed in rectum. The procedure was not difficult. There were no immediate obvious complications. The quality of the prep was BBPS: 3+2+3 = adequate Withdrawal time 19 minutes. Limitations: No limitations. Findings: Mucosa: Loss of normal vascular pattern and erythema in the ascending colon but remaining colon normal to cecum and terminal ileum. Cold forceps biopsies were taken from T.I, and then every 10 cm starting from cecum at 80 cm for dysplasia surveillance. Protruding lesions: * 1 sessile polyp of size 2 mm in ascending colon. Cold snare polypectomy was performed. The polyp was completely removed and retrieved. * 1 sessile polyp of size 2 mm in transverse colon. Cold snare polypectomy was performed. The polyp was completely removed and retrieved. * Small internal hemorrhoids without stigmata of recent bleeding. Impression: 1. Mildly abnormal mucosa in ascending colon. Remaining colon and ileum mucosa n ormal. (biopsy) 2. Total of 2 polyps removed 3. Internal hemorrhoids Recommendations: - Follow path results. - Management of polyps will be contingent on degree of dysplasia and background inflammation - Repeat colonoscopy in 1 year due to concurrent PSC
[2023-10-14 11:06] VITALS: BP 104/48; PULSE 79; RESP 16; TEMP 36.4; O2SAT 97
[2023-10-14 11:20] VITALS: BP 117/68; PULSE 63; RESP 16; O2SAT 98
[2023-10-14 11:35] VITALS: BP 127/77; PULSE 51; RESP 16; O2SAT 99
[2023-10-14 11:50] VITALS: BP 116/60; PULSE 65; RESP 16; TEMP 36.3; O2SAT 100
--- OUTSIDE RECORDS SUMMARY | 2023-10-16 23:36 | XMS_ITS ---
Author Organization [facility] Address [address] [place] [address] Care Team Providers Care Automatic Punch Press Operator Name Role Phone Nadja Mckee Primary Care Provider Jon Brown Unavailable [phone] Nadja Mckee MD Ref Unavailable Unavailable REASON FOR VISIT Rheumo 1 yr follow up Medications Medication SIG (Take, Route, Frequency, Duration) Notes Start Date End Date Status Ferrous Sulfate 325 (65 Fe) MG 1 tablet Orally once a day for 30 days Active Acetaminophen 325 MG 1 capsule as needed Orally every 6 hrs Unknown Methylphenidate Acti ve Budesonide 3 MG 3 capsules Orally Once a day for 30 days 11/09/2022 Active Azelastine HCl 137 MCG/SPRAY 1 puff in each nostril Nasally Twice a day for 30 days Unknown Humira-CD/UC/HS Starter 80 MG/0.8ML as directed Subcutaneous day 1 - inject 1 80mg/0.8ml, day 2- inject 1 80mg/0.8ml pen day 15 - inject 1 80mg/0.8 pen INDUCTION DOSE :day 1 - inject 1 80mg/0.8ml pen day 2- inject 1 80mg/0.8ml pen day 15 - inject 1 80mg/0.8 pen 09/03/2022 Active Budesonide ER 9 MG 1 tablet in the morning Orally Once a day 08/28/2022 Not-Taking Vitamin D 50 MCG (1999 UT) 1 tablet Orally Once a day Active Omeprazole 20 MG 1 capsule 30 minutes before morning meal Orally Once a day for 30 days 09/16/2022 Not-Taking Celecoxib 100 MG 1 capsule with food, as needed Orally Twice a day for 30 days Active Humira Pen 40 MG/0.4ML as directed Subcutaneous every other week 09/03/2022 Active Fluticasone Propionate 50 MCG/ACT 1 spray in each nostril Nasally Twice a day for 30 day(s) 03/13/2022 Active Encounters Encounter Location Date Provider Diagnosis [facility] [address] [place] [address] 08/30/2023 Jon Brown Ulcerative pancoliti s K51.00 and Enteropathic arthritis M07.60 Assessments Encounter Date Diagnosis (ICD Code) Assessment Notes Treatment Notes Treatment Clinical Notes 08/30/2023 Ulcerative pancolitis (ICD-10 - K51.00) He has a recent dx of UC. He started Humira for this. 08/30/2023 Enteropathic arthritis (ICD-10 - M07.60) He has joint pains that are somewhat random - based on activity and position, no redness, warmth or swelling. There is intermittent morning stiffness, up to an hour. They seem to have improved since starting Humira, although not even 2 weeks in. Dx with enteropathic arthritis. Limited options, due to impact most NSAIDs can have on UC. Add celecoxib as needed - only NSAID that does not worsen UC. Plan Of Treatment Medication Medication Name Sig Start Date Stop Date Notes Celecoxib 100 MG 1 capsule with food, as needed Orally Twice a day for 30 days Treatment Notes Assessment Notes Ulcerative pancolitis He has a recent dx of UC. He started Humira for this. Enteropathic arthritis He has joint pain s that are somewhat random - based on activity and position, no redness, warmth or swelling. There is intermittent morning stiffness, up to an hour. They seem to have improved since starting Humira, although not even 2 weeks in. Dx with enteropathic arthritis. Limited options, due to impact most NSAIDs can have on UC. Add celecoxib as needed - only NSAID that does not worsen UC. Next Appt Details Provider Name:Nadja Mckee, 0 10/20/2023 08:30:00 AM, [address] [facility], [address], [place], [place], [id number], Progress Notes * Joel PADILLA SDOB:2000 (23 yo M)Acc No.[id number]:08/30/2023 Progress Note Patient:Joel FUENTES Provider:?Jon Brown MD :2000???Age:23 Y???Sex:Male Vini e:08/30/2023 Address:[address] [place] [address] , [place], [id number] Pcp:Nadja Mckee Subjective: * Chief Complaints: * ???1. Rheumo 1 yr follow up. * HPI: ???.:? 08/30/23: Last visit; For?Ulcerative pancolitis, He has a recent dx of UC. He started Humira for this.? For?Enteropathic arthritis, Limited options, due to impact most NSAIDs can have on UC. Add celecoxib as needed - only NSAID that does not worsen UC.? He notes;. ? Prior HX; 22 yo male seen for initial evaluation 10/05/22. Per review of records, he has been having GI issues and joint pains. He saw GI and was dx with pancolitis, given budesonide and then Humira. He notes for the past few months, he has had gradual onset of pain and cracking in the elbows and knees. He had one event in his neck as well. Sx are not constant. Actvity can bring this on, particularly yoga. If he is lying in a position that puts his elbow in a wierd position, it can then happen upon extension. When he gets the pain, it can last 10-15 seconds. 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 He has no redness, warmth or swelling in his joints. He has intermittent morning stiffness; on a bad day, it can last up to an hour. He has no pain elsewhere. For his pancolitis, he started Humira 10 days ago. He is off the budesonide; he was on this for about 6 weeks. Since starting the Humira, it seems like the joint sx have improved a little bit. No rashes. No eye pain; soemtimes, when he gets up his vision goes black, and sometimes, with rapid change in movement, he sees stars. MHAQ: 0.3 Pain: 1 Global; 1. 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 * Medical History:? * Medications:?Taking Budesoni de 3 MG Capsule Delayed Release Particles 3 capsules Orally Once a day , Taking Celecoxib 100 MG Capsule 1 capsule with food, as needed Orally Twice a day , stop date 09/30/2023, Taking Ferrous Sulfate 325 (65 Fe) MG Tablet 1 tablet Orally once a day , Taking Fluticasone Propionate 50 MCG/ACT Suspension 1 spray in each nostril Nasally Twice a day , Taking Humira Pen 40 MG/0.4ML Pen-injector Kit as directed Subcutaneous every other week , Taking Humira-CD/UC/HS Starter 80 MG/0.8ML Pen-injector Kit as directed Subcutaneous day 1 - inject 1 80mg/0.8ml, day 2- inject 1 80mg/0.8ml pen day 15 - inject 1 80mg/0.8 pen , Notes to Pharmacist: INDUCTION DOSE :day 1 - inject 1 80mg/0.8ml pen day 2- inject 1 80mg/0.8ml pen day 15 - inject 1 80mg/0.8 pen, Taking Methylphenidate , Taking Vitamin D 50 MCG (2000 UT) Tablet 1 tablet Orally Once a day , Not-Taking/PRN Budesonide ER 9 MG Tablet Extended Release 24 Hour 1 tablet in the morning Orally Once a day , Not-Taking/PRN Omeprazole 20 MG Capsule Delayed Release 1 capsule 30 minutes before morning meal Orally Once a day , Unknown Acetaminophen 325 MG Capsule 1 capsule as needed Orally every 6 hrs , Unknown Azelastine HCl 137 MCG/SPRAY Solution 1 puff in each nostril Nasally Twice a day * Implants:? Objective: * Vitals:? * Examination: ???Examination: ???NAD CTA BL no w/r/r RRR no m/r/gm NABS On comprehensive musculoskeletal exam: Gait and station are normal.. Inspection of the digits revealed no clubbing, cyanosis, petechiae, pitting, ischemic or infectious changes or nodes. Examination of all four extremities revealed no evidence of misalignment, asymmetry, crepitation, defects, tenderness, masses or effusions, ROM was intact without pain, no instability or dislocation, and normal muscle strength and tone without atrophy or abnormal movements. ??? Assessment: * Assessment: 1.?Ulcerative pancolitis - K 51.00 (Primary)???2.?Enteropathic arthritis - M07.60??? 23 yo male with UC, joint pa ins. Plan: * Treatment: 2.?Enteropathic arthritis? Start Celecoxib Capsule, 100 MG, 1 capsule with food, as needed, Orally, Twice a day, 30 days, 60 Capsule, Refills 11.?? Notes: He has joint pains that are somewhat random - based on activity and position, no redness, warmth or swelling. There is intermittent morning stiffness, up to an hour. They seem to have improved since starting Humira, although not even 2 weeks in. Dx with enteropathic arthritis. Limited options, due to impact most NSAIDs can have on UC. Add celecoxib as needed - only NSAID that does not worsen UC. ?? * * Electronic signature of Jon Brown MD on 10/16/2023 at 11:36 PM EDT Sign off status: Pending * Provider:?Jon Brown MD Date:?08/30/19 24 Generated for Tabby myers/Suha/Roryitting on:?10/16/2023 11:36 PM EDT
--- OUTSIDE RECORDS SUMMARY | 2023-10-16 23:37 | XMS_ITS ---
Author Organization [facility] Address [address] [place] [address] Care Team Providers Care Lead Pressman [employer] Printing Name Role Phone Nadja Mckee Primary Care Provider Jon Brown Unavailable [phone] Nadja Mckee MD Ref Unavailable Unavailable Aaron Mckeon Unavailable [phone] REASON FOR VISIT 2 months f/u Encounters Encounter Location Date Provider Diagnosis [facility] [address] [place], [place] [id number] 02/10/2023 Aaron Mckeon Plan Of Treatment Next Appt Details Provider Name:Nadja Mckee, 0 10/20/2023 08:30:00 AM, [address] [facility], [address], [place], [id number], Progress Notes * Joel PADILLA SDOB:2000 (23 yo M)Acc No.[id number]:02/10/2023 Progress Notes Patient:?Joel PADILLA Provider:?Aaron Mckeon MD :2000???Age:22 Y???Sex:Male Vini e:02/10/2023 Address[place] [id number] Pcp:Nadja Mckee Subjective: * Chief Complaints: * ???1. 2 months f/u. * Medical History:? * Implants:? Objective: * Vitals:? Assessment: Plan: * Treatment: * * Electronic signature of Carla Mckeon MD, [id number] on 10/16/2023 at 11:36 PM EDT Sign off status: Pending * Provider:?Aaron Mckeon MD Date:?01/23 Generated for Tabby myers/Suha/Papa on:?10/16/2023 11:36 PM EDT
--- OUTSIDE RECORDS SUMMARY | 2023-10-16 23:37 | XMS_ITS ---
Author Organization [facility] Address [address] [place] [address] Care Team Providers Care Independent Insurance Adjuster Name Role Phone Nadja Mckee Primary Care Provider Jon Brown Unavailable [phone] Nadja Mckee MD Ref Unavailable Unavailable Aaron Mckeon Unavailable [phone] REASON FOR VISIT 2 months f/u Encounters Encounter Location Date Provider Diagnosis [facility] [address] [place], [place] [id number] 01/19/2023 Aaron Mckeon Plan Of Treatment Next Appt Details Provider Name:Nadja Mckee, 0 10/20/2023 08:30:00 AM, [address] [facility], [address], [place], [id number], Progress Notes * Joel PADILLA SDOB:2000 (23 yo M)Acc No.[id number]:01/19/2023 Progress Notes Patient:?Joel PADILLA Provider:?Aaron Mckeon MD :2000???Age:22 Y???Sex:Male Vini e:01/19/2023 Address:[address] [id number] Pcp:Nadja Mckee Subjective: * Chief Complaints: * ???1. 2 months f/u. * Medical History:? * Implants:? Objective: * Vitals:? Assessment: Plan: * Treatment: * * Electronic signature of Carla Mckeon MD, [id number] on 10/16/2023 at 11:36 PM EDT Sign off status: Pending * Provider:?Aaron Mckeon MD Date:?12/24 Generated for Tabby myers/Suha/Papa on:?10/16/2023 11:36 PM EDT
--- OUTSIDE RECORDS SUMMARY | 2023-10-16 23:38 | XMS_ITS | Continuity of Care Document ---
Author Organization [facility] Address [address] [place] [address] Phone Care Team Providers Care Traveling Missionary Name Role Phone MD Nadja Mckee Primary Care Provider Austin Mei Family Provider JOSE Williamson Attending Provider [phone] Chief Complaint and Reason for Visit Chief Complaint INTRAHEPATIC BILE DU CT DILATION Social History Smoking Status Unknown if ever smoked Additional Data Assigned Sex Male Procedures Procedure Date Performed Status MR abdomen wo/w contrast October 09, 2022 9:07a m completed Relevant Diagnostic Tests and/or Laboratory Data Diagnostic Imaging Reports Report Dictated Date/Time Dictated By Status Radiology Report October 09, 2022 9:18am Randall Treadwell MD completed [facility] MRI [address], [address] [place] [address] Patient Name: Joel Padilla Medical Record#: [id number] Address: [address] City/State/Zip: [place] [address]: Saundra shepard [employer] Insurance: [facility] /Age/Sex: 2000/22/M Self Pay Admit/Reg Date: 10/09/[address]: Saundra Williamson NP Location: DI.PCMRI[facility]/ PCP: Nadja Mckee MD Date of Service: 08/18/23 Order (s): MR abdomen wo/w contrast CPT Code: 04424 Report Number: [id number] Reason for Exam: INTRAHEPATIC BILE DUCT DILATION Exam: MRI AND MRCP ABDOMEN (with and without contrast) History: Ulcerative colitis. Prior appendectomy. Biliary ductal dilation on prior CT. Technique: High resolution, high-field 1.5 paulina, multiplanar, multi-sequential images of the abdomen were acquired before and after the dynamic rapid intravenous administration of contrast. Additional heavily T2-weighted images of the biliary system were acquired. Contrast type: Gadavist Contrast used: 8 cc Comparisons: - Fibroscan 09/14/2022 - Abdomen ultrasound 09/09/2022 - CT abdomen pelvis with contrast 09/04/2022 Findings: HEPATIC: Normal size and morphology. No fatty replacement identified. No focal hepatic abnormality. GB/BILIARY: Diffuse intrahepatic biliary ductal dilation in all segments of the liver. Although images are somewhat degraded by patient motion, there are probable multiple areas of segmental strictures as well particularly within the right lobe hepatic segments. There is no obvious extrahepatic biliary ductal irregularity or stenoses noted. No extrahepatic biliary dilation or choledocholithiasis are noted. The gallbladder is contracted. PANCREAS: No focal pancreatic abnormality nor abnormal enhancement. There is normal course and caliber of the main pancreatic duct. SPLEEN: Normal size without focal abnormality. ADRENAL GLANDS: Unremarkable KIDNEYS: No hydronephrosis nor hydroureter. No suspicious focal renal parenchymal abnormality bilaterally. LYMPHATIC/RETROPERITONEUM: No lymphadenopathy. No retroperitoneal mass. AORTA/VASCULAR: There is no abdominal aortic aneurysm nor dissection. There is no venous thrombosis. The portal venous system is patent. GI/PERITONEAL CAVITY: Where visualized, no focal GI tract inflammatory changes. No free fluid nor collections. Excess amount of stool within the visualized colon. OSSEOUS: No fracture nor suspicious osseous abnormality Impression: Moderate diffuse intrahepatic biliary dilation and probable scattered areas of intrahepatic biliary ductal stenoses. The differential would include primary biliary cholangitis and primary sclerosing cholangitis. A MARGARETTE message has been communicated to Saundra Williamson via the [employer] application on 10/09/2022 11:56 AM, Message ID [id number]. Electronically Signed By: Randall Treadwell M.D. Signature Date: 10/09/2022 12:23 PM Dictated By: Randall Treadwell MD 10/09/22 0918 Signed By: Randall Treadwell MD 10/09/22 1233 TD/TT: 10/09/22917Tech: SVCRPA cc: VLADISLAV; DAO* Saundra Williamson NP; Nadja Mckee MD Insurance Providers Guarantor Joel Padilla Address [address] [place] [address] Contact Info. Home Phone: Payer Policy Id Coverage Id Subscriber's Name Subscriber Id Effective Date Expiration Date [facility] Care Elect [id number] 23 [id number] CROW Padilla [id number] [facility] Blue [id number] 23 [id number] Encounters Encounter Location(s) Arrival/Admit Date Discharge/Depart Date Provider(s) Departed Clinical [facility] October 09, 2022 9:05am October 09, 2022 9:06am Saundra Williamson NP
--- OUTSIDE RECORDS SUMMARY | 2023-10-16 23:38 | XMS_ITS | Continuity of Care Document ---
Author Organization [facility] Address [address] [place] [address] Phone Care Team Providers Care It Help Desk Manager Name Role Phone Austin Mei Jesús Family Provider [phone] MD Nadja Mckee Primary Care Provider MD Nadja Mckee Attending Provider Chief Complaint and Reason for Visit Chief Complaint PALPITATIONS Social History Smoking Status Unknown if ever smoked Additional Data Assigned Sex Male Procedures Procedure Date Performed Status Event Holter Application August 13, 2022 9:20am completed Insurance Providers Guarantor Joel Padilla Address [address] [place] [address] Contact Info. Home Phone: Payer Policy Id Coverage Id Subscriber's Name Subscriber Id Effective Date Expiration Date [facility] Care Elect [id number] 23 [id number] CROW Padilla [id number] [facility] Blue [id number] 23 [id number] Encounters Encounter Location(s) Arrival/Admit Date Discharge/Depart Date Provider(s) Departed Clinical [facility] August 13, 2022 9:21am August 13, 2022 9:22am Nadja Mckee MD
--- OUTSIDE RECORDS SUMMARY | 2023-10-16 23:38 | XMS_ITS | Continuity of Care Document ---
Author Organization [facility] Address [address] [place] [address] Phone Care Team Providers Care Shift Leader Name Role Phone Austin Mei Jesús Family Provider MD Nadja Mckee Primary Care Provider MD Nadja Mckee Attending Provider Chief Complaint and Reason for Visit Chief Complaint PALPITATIONS Palpitations Social History Smoking Status Unknown if ever smoked Additional Data Assigned Sex Male Procedures Procedure Date Performed Status Event Holter Application August 13, 2022 9:20am completed Insurance Providers Guarantor Joel Padilla Address [address] [place] [address] Contact Info. Home Phone: Payer Policy Id Coverage Id Subscriber's Name Subscriber Id Effective Date Expiration Date [facility] Care Elect [id number] 23 [id number] CROW Padilla [id number] [facility] Blue [id number] 23 [id number] Encounters Encounter Location(s) Arrival/Admit Date Discharge/Depart Date Provider(s) Departed Clinical [facility] August 13, 2022 9:21am August 13, 2022 9:22am Nadja Mckee MD Departed Referred [facility] August 26, 2022 8:00am August 26, 2022 8:01am Nadja Mckee MD
== END 2023-10-14 12:28 | disposition home or self-care (01) ==
PROVIDERS: Visit Provider Internal Medicine
PROC: 0DJD8ZZ Inspection of Lower Intestinal Tract, Via Natural or Artificial Opening Endoscopic (ICD-10-PCS; CPT 45378; principal; 2023-10-14 10:20)
DX: K51.90 Ulcerative colitis, unspecified, without complications (principal); K83.01 Primary sclerosing cholangitis; K51.40 Inflammatory polyps of colon without complications; K64.8 Other hemorrhoids; Z90.49 Acquired absence of other specified parts of digestive tract; B36.0 Pityriasis versicolor; Z79.899 Other long term (current) drug therapy
CPT/HCPCS: 45385; 88305; J2704

== ENCOUNTER → 2023-10-14 08:36 | Outpatient (BNV) | payer BC, SELFPAY | PROVIDERS: Visit Provider Internal Medicine | DX: K51.90 Ulcerative colitis, unspecified, without complications (principal); D12.2 Benign neoplasm of ascending colon; D12.3 Benign neoplasm of transverse colon; K64.8 Other hemorrhoids | CPT/HCPCS: 45380; 45385 ==